=== PATIENT | female | born 1945 | race Caucasian/White ===

== ENCOUNTER 2020-12-19 19:04 | Inpatient (IN) | payer OTHER, BC ==
[2020-12-19 19:50] VITALS: BMI 30.9
[2020-12-19] MEDS ORDERED: ACETAMINOPHEN 1000 MG/100 ML VIAL (NON FORMULARY) IVPB ONE (19:50)
[2020-12-19] MEDS ORDERED: LACTATED RINGERS SOLUTION 1000 ML INFUS.BAG IV ONE (19:57)
[2020-12-19] MEDS ORDERED: METOCLOPRAMIDE HCL INJECTION 10 MG/2 ML VIAL IVPUSH ONE (19:57)
[2020-12-19] MEDS ORDERED: ACETAMINOPHEN INJECTION 100 ML IVPB ONE (20:20)
[2020-12-19] MEDS ORDERED: METOCLOPRAMIDE HCL INJECTION 10 MG/2 ML VIAL ONE (20:20)
[2020-12-19 21:21] LABS: BASO % 0.4 % (0-2.0); HEMATOCRIT 36.1 % (32.4-45.2); HEMOGLOBIN 12.5 GM/dL (10.7-15.3); LYMPH % 3.9 % (8-40); MCH 31.4 pg (25.7-33.7); MCHC 34.7 g/dl (32.0-36.0); MEAN CELL VOLUME 90.6 fl (80-96); MEAN PLT VOLUME 8.9 fl (7.5-11.1); MONO % 11.3 % (3.8-10.2); NEUT % 84.4 % (42.8-82.8); PLATELET COUNT 153 K/MM3 (134-434); RBC 3.98 M/mm3 (3.60-5.2); RDW 12.2 % (11.6-15.6); WHITE BLOOD COUNT 8.3 K/mm3 (4.0-10.0)
[2020-12-19 21:27] LABS: INR 1.56 (0.83-1.09)
[2020-12-19 21:29] LABS: ACTIVATED PTT 35.7 SECONDS (25.2-36.5)
[2020-12-19 21:57] LABS: MAGNESIUM 2.1 mg/dL (1.8-2.4)
[2020-12-19 22:04] LABS: POTASSIUM 4.6 mmol/L (3.5-5.1)
[2020-12-19 22:06] LABS: ALBUMIN 3.4 g/dl (3.4-5.0); BLOOD UREA NITROGEN 14.9 mg/dL (7-18); CALCIUM 8.9 mg/dL (8.5-10.1)
[2020-12-19 22:10] LABS: TOT PROT 6.7 g/dl (6.4-8.2)
[2020-12-20 00:51] LABS: VENOUS BASE EXCESS 0.4 mmol/L (-2-2); VENOUS O2 SATURATION 58.5 % (70-80); VENOUS PH 7.419 (7.310-7.410)
[2020-12-20 01:10] LABS: EPI CELLS >36 /uL (0-25.1); HYALINE CASTS 1 /uL (0-3.1); PH,URINE 5.5 (5.0-8.0); URINE APPEARANCE CLOUDY; URINE BACTERIA 45 /uL (0-1359); URINE BILIRUBIN NEGATIVE (NEGATIVE); URINE COLOR YELLOW; URINE GLUCOSE (UA) NEGATIVE (NEGATIVE); URINE KETONE NEGATIVE (NEGATIVE); URINE LEUK ESTERASE 2+ (NEGATIVE); URINE NITRITE NEGATIVE (NEGATIVE); URINE PROTEIN TRACE (NEGATIVE); URINE UROBILINOGEN 0.2 mg/dL (0.2-1.0); URINE WBC 83 /uL (0-25.8)
[2020-12-20] MEDS ORDERED: CEFTRIAXONE 1,000 MG in DEXTROSE 5%-WATER - 50 ML IVPB ONE (01:17)
[2020-12-20] MEDS ORDERED: CEFTRIAXONE 1 GM/50 ML BAG ONE ×3 (01:35→10:17)
[2020-12-20] MEDS ORDERED: LISINOPRIL 20 MG TABLET PO ONE (03:21)
[2020-12-20] MEDS ORDERED: LISINOPRIL 20 MG TABLET ONE ×2 (03:40→10:16)
[2020-12-20] MEDS: SODIUM CHLORIDE 1,000 ML IV SCH ×2 (03:46→12:17)
[2020-12-20 07:51] LABS: BASO % 0.2 % (0-2.0); HEMATOCRIT 32.5 % (32.4-45.2); HEMOGLOBIN 11.2 GM/dL (10.7-15.3); LYMPH % 4.6 % (8-40); MCH 31.2 pg (25.7-33.7); MCHC 34.5 g/dl (32.0-36.0); MEAN CELL VOLUME 90.4 fl (80-96); MONO % 13.7 % (3.8-10.2); NEUT % 81.5 % (42.8-82.8); PLATELET COUNT 135 K/MM3 (134-434); RBC 3.59 M/mm3 (3.60-5.2); RDW 12.2 % (11.6-15.6)
[2020-12-20 08:06] LABS: POTASSIUM 3.6 mmol/L (3.5-5.1)
[2020-12-20 08:09] LABS: ALBUMIN 2.9 g/dl (3.4-5.0); BLOOD UREA NITROGEN 15.1 mg/dL (7-18); CALCIUM 8.2 mg/dL (8.5-10.1); MAGNESIUM 1.9 mg/dL (1.8-2.4)
[2020-12-20 08:13] LABS: BILIRUBIN,TOTAL 0.6 mg/dL (0.2-1); CREATININE 0.8 mg/dL (0.55-1.3); PHOSPHOROUS 1.8 mg/dL (2.5-4.9); TOT PROT 5.8 g/dl (6.4-8.2)
[2020-12-20 08:23] LABS: CHOLESTEROL 163 mg/dL (50-200)
[2020-12-20 08:24] LABS: LDL CHOLESTEROL (ONLY SJRH) 91 mg/dL (5-100); TRIGLYCERIDES 93 mg/dL (0-150)
[2020-12-20 08:26] LABS: HDL CHOLESTEROL 47 mg/dL (40-60)
[2020-12-20] MEDS ORDERED: ACETAMINOPHEN 325 MG TABLET (FP) ONE (08:32)
[2020-12-20] MEDS: ACETAMINOPHEN 325 MG TABLET (FP) PO PRN ×3 (08:48→19:59)
[2020-12-20 09:37] LABS: URINE RBC 51.1 /uL (0-23.9); YEAST NON (NEGATIVE)
[2020-12-20] MEDS ORDERED: CEFTRIAXONE 1 GM in DEXTROSE 5%-WATER - 50 ML IVPB SCH (10:00)
[2020-12-20] MEDS ORDERED: ENOXAPARIN NA (PORCINE) 40 MG/0.4 ML DISP.SYRIN SQ SCH (10:00)
[2020-12-20] MEDS ORDERED: LISINOPRIL 20 MG TABLET PO SCH (10:00)
[2020-12-20] MEDS ORDERED: ENOXAPARIN NA (PORCINE) 40 MG/0.4 ML DISP.SYRIN SQ ONE (10:16)
[2020-12-20] MEDS: POLYETHYLENE GLYCOL 3350 119 GM BTL PO SCH (10:24)
[2020-12-20] MEDS ORDERED: NAPH,MB-DB/K PH,MBDB POWDER PACKET PO ONE (10:52)
[2020-12-20 13:43] LABS: HIV INTERPRETATION NEGATIVE (NEGATIVE)
[2020-12-20] MEDS ORDERED: HYDROCODONE ACETAMIN PO PRN (15:15)
[2020-12-20] MEDS ORDERED: AMPICILLIN - 2 GM in SODIUM CHLORIDE 100 ML IVPB SCH ×2 (15:30→17:15)
[2020-12-20] MEDS ORDERED: ACYCLOVIR 1000 MG (50MG/ML) VIAL IVPB SCH (15:30)
[2020-12-20] MEDS ORDERED: Acyclovir Sodium 800 MG in DEXTROSE 5%-WATER - 250 ML IVPB SCH (17:00)
[2020-12-20] MEDS: VANCOMYCIN 1 GM in D5W (PRE-DOCKED) 1,000 MG/250 ML IVPB SCH (18:58)
[2020-12-20] MEDS ORDERED: SODIUM CHLORIDE 500 ML IV STA (20:06)
[2020-12-20] MEDS ORDERED: PIPERACILLIN/TAZOBACTAM 4.5 GM VIAL IVPB ONE (21:30)
[2020-12-20] MEDS ORDERED: DEXTROSE 5%-WATER 100 ML IVPB ONE (21:30)
[2020-12-20] MEDS: PIPERACILLIN/TAZOB 4.5 GM 4.5 GM in DEXTROSE 5%-WATER 100 ML IVPB SCH (21:45)
[2020-12-20] MEDS: GABAPENTIN 100 MG CAPSULE PO SCH (21:46)
[2020-12-20] MEDS ORDERED: VANCOMYCIN 1 GM in D5W (PRE-DOCKED) 1,000 MG/250 ML IVPB SCH (22:00)
[2020-12-21] MEDS ORDERED: DEXTROSE 5%-WATER 100 ML IVPB ONE ×3 (02:21→17:23)
[2020-12-21] MEDS ORDERED: PIPERACILLIN/TAZOBACTAM 4.5 GM VIAL IVPB ONE ×3 (02:21→17:23)
[2020-12-21] MEDS: PIPERACILLIN/TAZOB 4.5 GM 4.5 GM in DEXTROSE 5%-WATER 100 ML IVPB SCH ×3 (02:25→17:24)
[2020-12-21] MEDS: SODIUM CHLORIDE 1,000 ML IV SCH (03:40)
[2020-12-21] MEDS: VANCOMYCIN 1 GM in D5W (PRE-DOCKED) 1,000 MG/250 ML IVPB SCH (05:12)
[2020-12-21 07:13] LABS: POTASSIUM 3.6 mmol/L (3.5-5.1)
[2020-12-21 07:16] LABS: CALCIUM 8.1 mg/dL (8.5-10.1)
[2020-12-21 07:17] LABS: ALBUMIN 2.7 g/dl (3.4-5.0); BLOOD UREA NITROGEN 15.8 mg/dL (7-18)
[2020-12-21 07:20] LABS: CREATININE 1.1 mg/dL (0.55-1.3); PHOSPHOROUS 2.4 mg/dL (2.5-4.9)
[2020-12-21 07:21] LABS: BILIRUBIN,TOTAL 0.7 mg/dL (0.2-1)
[2020-12-21 07:22] LABS: BASO % 0.2 % (0-2.0); EOS % 0.1 % (0-4.5); HEMATOCRIT 31.9 % (32.4-45.2); HEMOGLOBIN 10.9 GM/dL (10.7-15.3); LYMPH % 5.8 % (8-40); MCH 31.1 pg (25.7-33.7); MCHC 34.1 g/dl (32.0-36.0); MEAN CELL VOLUME 91.2 fl (80-96); MEAN PLT VOLUME 9.9 fl (7.5-11.1); MONO % 16.6 % (3.8-10.2); NEUT % 77.3 % (42.8-82.8); PLATELET COUNT 142 K/MM3 (134-434); RBC 3.49 M/mm3 (3.60-5.2); RDW 12.5 % (11.6-15.6); TOT PROT 5.4 g/dl (6.4-8.2); WHITE BLOOD COUNT 7.6 K/mm3 (4.0-10.0)
[2020-12-21] MEDS ORDERED: NAPH,MB-DB/K PH,MBDB POWDER PACKET PO ONE (08:15)
[2020-12-21] MEDS: PANTOPRAZOLE 40 MG TABLET PO SCH (09:52)
[2020-12-21] MEDS: LEVOTHYROXINE NA 25 MCG TABLET (FP) PO SCH (09:52)
[2020-12-21] MEDS: GABAPENTIN 100 MG CAPSULE PO SCH ×2 (09:53→21:22)
[2020-12-21] MEDS: POLYETHYLENE GLYCOL 3350 119 GM BTL PO SCH (09:53)
[2020-12-21] MEDS ORDERED: CEFTRIAXONE 2 GM in DEXTROSE 5%-WATER 2 GM/50 ML BAG IVPB SCH (10:00)
[2020-12-21] MEDS ORDERED: LOSARTAN POTASSIUM 50 MG TABLET PO SCH (10:00)
[2020-12-21] MEDS ORDERED: ACETAMINOPHEN 1000 MG/100 ML VIAL (NON FORMULARY) IVPB ONE (12:00)
[2020-12-21] MEDS: ENOXAPARIN NA (PORCINE) 40 MG/0.4 ML DISP.SYRIN SQ SCH (14:55)
[2020-12-21 16:28] LABS: INR 1.2 (0.83-1.09); PROTHROMBIN TIME (PATIENT) 14.7 SEC (9.7-13.0)
[2020-12-22] MEDS ORDERED: VANCOMYCIN 1 GRAM (PRE-DOCKED) 1,000 MG/250 ML BAG IVPB SCH (06:00)
[2020-12-22] MEDS ORDERED: PIPERACILLIN/TAZOBACTAM 4.5 GM VIAL IVPB ONE ×4 (06:13→16:56)
[2020-12-22] MEDS ORDERED: DEXTROSE 5%-WATER 100 ML IVPB ONE ×4 (06:14→16:56)
[2020-12-22] MEDS: PIPERACILLIN/TAZOB 4.5 GM 4.5 GM in DEXTROSE 5%-WATER 100 ML IVPB SCH ×3 (06:29→18:14)
[2020-12-22] MEDS: SODIUM CHLORIDE 1,000 ML IV SCH (06:36)
[2020-12-22] MEDS: ACETAMINOPHEN 325 MG TABLET (FP) PO PRN ×2 (07:01→21:03)
[2020-12-22 07:07] LABS: BASO % 0.2 % (0-2.0); EOS % 0.5 % (0-4.5); HEMATOCRIT 30.8 % (32.4-45.2); HEMOGLOBIN 10.9 GM/dL (10.7-15.3); LYMPH % 4.7 % (8-40); MCH 31.6 pg (25.7-33.7); MCHC 35.2 g/dl (32.0-36.0); MEAN CELL VOLUME 89.7 fl (80-96); MEAN PLT VOLUME 8.9 fl (7.5-11.1); MONO % 12.9 % (3.8-10.2); NEUT % 81.7 % (42.8-82.8); PLATELET COUNT 172 K/MM3 (134-434); RBC 3.44 M/mm3 (3.60-5.2); RDW 12.4 % (11.6-15.6); WHITE BLOOD COUNT 7.1 K/mm3 (4.0-10.0)
[2020-12-22 07:43] LABS: ALBUMIN 2.6 g/dl (3.4-5.0); BLOOD UREA NITROGEN 13.6 mg/dL (7-18)
[2020-12-22 07:46] LABS: BILIRUBIN,TOTAL 0.6 mg/dL (0.2-1)
[2020-12-22 07:47] LABS: TOT PROT 5.5 g/dl (6.4-8.2)
[2020-12-22] MEDS ORDERED: NAPH,MB-DB/K PH,MBDB POWDER PACKET PO ONE (07:51)
[2020-12-22 09:12] LABS: POTASSIUM 2.9 mmol/L (3.5-5.1)
[2020-12-22] MEDS: GABAPENTIN 100 MG CAPSULE PO SCH ×2 (10:16→21:01)
[2020-12-22] MEDS: KCL 10 MEQ IVPB 10 MEQ/100 ML INFUS.BAG IVPB SCH ×4 (10:17→17:13)
[2020-12-22] MEDS: LEVOTHYROXINE NA 25 MCG TABLET (FP) PO SCH (10:17)
[2020-12-22] MEDS: ENOXAPARIN NA (PORCINE) 40 MG/0.4 ML DISP.SYRIN SQ SCH (10:17)
[2020-12-22] MEDS: PANTOPRAZOLE 40 MG TABLET PO SCH (10:17)
[2020-12-22] MEDS: POLYETHYLENE GLYCOL 3350 119 GM BTL PO SCH (10:17)
[2020-12-22] MEDS: POTASSIUM CHLORIDE ORAL LIQUID 20 MEQ/15 ML PO SCH ×3 (12:04→21:02)
[2020-12-22] MEDS ORDERED: AZITHROMYCIN IVPB 500 MG in DEXTROSE 5%-WATER - 250 ML IVPB SCH (12:45)
[2020-12-22] MEDS ORDERED: TRIMETHOBENZAMIDE HCL 300 MG CAPSULE PO ONE (17:53)
[2020-12-22] MEDS: VANCOMYCIN 1 GRAM (PRE-DOCKED) 1,000 MG/250 ML BAG IVPB SCH (20:55)
[2020-12-23] MEDS ORDERED: DEXTROSE 5%-WATER 100 ML IVPB ONE ×3 (01:04→17:50)
[2020-12-23] MEDS ORDERED: PIPERACILLIN/TAZOBACTAM 4.5 GM VIAL IVPB ONE ×3 (01:04→17:50)
[2020-12-23] MEDS: PIPERACILLIN/TAZOB 4.5 GM 4.5 GM in DEXTROSE 5%-WATER 100 ML IVPB SCH ×3 (01:30→17:52)
[2020-12-23] MEDS: VANCOMYCIN 1 GRAM (PRE-DOCKED) 1,000 MG/250 ML BAG IVPB SCH ×2 (05:50→17:52)
[2020-12-23 08:23] LABS: CHLORIDE 104 mmol/L (98-107); POTASSIUM 3.1 mmol/L (3.5-5.1); SODIUM 137 mmol/L (136-145)
[2020-12-23 08:26] LABS: CALCIUM 8.3 mg/dL (8.5-10.1); GLUCOSE,RANDOM 127 mg/dL (74-106)
[2020-12-23 08:27] LABS: ALBUMIN 2.6 g/dl (3.4-5.0); ANION GAP 9 MMOL/L (8-16); BASO % 0.3 % (0-2.0); BLOOD UREA NITROGEN 12.4 mg/dL (7-18); CO2 24 mmol/L (21-32); EOS % 1.7 % (0-4.5); HEMATOCRIT 30.8 % (32.4-45.2); HEMOGLOBIN 10.5 GM/dL (10.7-15.3); LYMPH % 5.9 % (8-40); MCH 30.9 pg (25.7-33.7); MCHC 34.1 g/dl (32.0-36.0); MEAN CELL VOLUME 90.7 fl (80-96); MEAN PLT VOLUME 9.5 fl (7.5-11.1); MONO % 11.6 % (3.8-10.2); NEUT % 80.5 % (42.8-82.8); PLATELET COUNT 188 K/MM3 (134-434); RBC 3.39 M/mm3 (3.60-5.2); RDW 13.1 % (11.6-15.6)
[2020-12-23 08:29] LABS: CREATININE 1.1 mg/dL (0.55-1.3)
[2020-12-23 08:30] LABS: PHOSPHOROUS 1.6 mg/dL (2.5-4.9); SGOT/AST 26 U/L (15-37); SGPT/ALT 20 U/L (13-61)
[2020-12-23 08:31] LABS: BILIRUBIN,TOTAL 0.6 mg/dL (0.2-1); TOT PROT 5.6 g/dl (6.4-8.2)
[2020-12-23 08:32] LABS: ALK PHOS 69 U/L (45-117)
[2020-12-23] MEDS ORDERED: KCL 10 MEQ IVPB 10 MEQ/100 ML INFUS.BAG IVPB SCH (08:45)
[2020-12-23] MEDS: oxyCODONE HCL 5 MG TABLET PO PRN ×2 (09:58→22:02)
[2020-12-23] MEDS: KCL 10 MEQ IVPB 10 MEQ/100 ML INFUS.BAG IVPB SCH ×5 (09:59→15:38)
[2020-12-23] MEDS: SODIUM CHLORIDE 1,000 ML IV SCH (10:00)
[2020-12-23] MEDS: ENOXAPARIN NA (PORCINE) 40 MG/0.4 ML DISP.SYRIN SQ SCH (10:01)
[2020-12-23] MEDS: GABAPENTIN 100 MG CAPSULE PO SCH ×2 (10:01→21:58)
[2020-12-23] MEDS: PANTOPRAZOLE 40 MG TABLET PO SCH (10:01)
[2020-12-23] MEDS: LEVOTHYROXINE NA 25 MCG TABLET (FP) PO SCH (10:01)
[2020-12-23] MEDS: POLYETHYLENE GLYCOL 3350 119 GM BTL PO SCH (10:02)
[2020-12-23] MEDS: AZITHROMYCIN IVPB 500 MG/250 ML BAG IVPB SCH (10:03)
[2020-12-23] MEDS ORDERED: POTASSIUM PHOSPHATE 30 MM in SODIUM CHLORIDE 500 ML IVPB ONE ×2 (10:57→14:00)
[2020-12-23] MEDS: metoPROLOL SUCCINATE 25 MG TAB.SR.24H (FP) PO SCH (12:47)
[2020-12-24] MEDS ORDERED: MAG HYDROX/AL HYDROX/SIMETH 30 ML UNIT-DOSE CUP PO ONE (04:13)
[2020-12-24] MEDS ORDERED: PIPERACILLIN/TAZOBACTAM 4.5 GM VIAL IVPB ONE ×3 (04:20→16:57)
[2020-12-24] MEDS ORDERED: DEXTROSE 5%-WATER 100 ML IVPB ONE ×3 (04:20→16:57)
[2020-12-24] MEDS: SODIUM CHLORIDE 1,000 ML IV SCH (04:22)
[2020-12-24] MEDS: PIPERACILLIN/TAZOB 4.5 GM 4.5 GM in DEXTROSE 5%-WATER 100 ML IVPB SCH ×3 (04:22→16:59)
[2020-12-24] MEDS: VANCOMYCIN 1 GRAM (PRE-DOCKED) 1,000 MG/250 ML BAG IVPB SCH ×2 (05:31→19:04)
[2020-12-24] MEDS ORDERED: SODIUM CHLORIDE 1,000 ML IV SCH (08:19)
[2020-12-24] MEDS: oxyCODONE HCL 5 MG TABLET PO PRN ×2 (08:25→17:01)
[2020-12-24 08:31] LABS: BASO % 0.7 % (0-2.0); EOS % 3.6 % (0-4.5); HEMATOCRIT 28.1 % (32.4-45.2); HEMOGLOBIN 9.6 GM/dL (10.7-15.3); LYMPH % 6.3 % (8-40); MCHC 34.2 g/dl (32.0-36.0); MEAN CELL VOLUME 90.7 fl (80-96); MONO % 13.8 % (3.8-10.2); NEUT % 75.6 % (42.8-82.8); PLATELET COUNT 211 K/MM3 (134-434); WHITE BLOOD COUNT 5.8 K/mm3 (4.0-10.0)
[2020-12-24 08:47] LABS: POTASSIUM 3.4 mmol/L (3.5-5.1)
[2020-12-24 09:02] LABS: CALCIUM 7.9 mg/dL (8.5-10.1)
[2020-12-24 09:03] LABS: ALBUMIN 2.2 g/dl (3.4-5.0); BLOOD UREA NITROGEN 8.7 mg/dL (7-18); MAGNESIUM 1.9 mg/dL (1.8-2.4)
[2020-12-24 09:05] LABS: CREATININE 0.9 mg/dL (0.55-1.3)
[2020-12-24 09:06] LABS: PHOSPHOROUS 2.6 mg/dL (2.5-4.9)
[2020-12-24 09:07] LABS: BILIRUBIN,TOTAL 0.4 mg/dL (0.2-1); TOT PROT 5.1 g/dl (6.4-8.2)
[2020-12-24] MEDS ORDERED: POTASSIUM CHLORIDE TABS 20 MEQ TABLET.ER (FP) PO ONE (09:17)
[2020-12-24] MEDS: ENOXAPARIN NA (PORCINE) 40 MG/0.4 ML DISP.SYRIN SQ SCH (09:47)
[2020-12-24] MEDS: AZITHROMYCIN IVPB 500 MG/250 ML BAG IVPB SCH (09:47)
[2020-12-24] MEDS: PANTOPRAZOLE 40 MG TABLET PO SCH (09:48)
[2020-12-24] MEDS: GABAPENTIN 100 MG CAPSULE PO SCH ×2 (09:49→21:43)
[2020-12-24] MEDS: metoPROLOL SUCCINATE 25 MG TAB.SR.24H (FP) PO SCH (09:50)
[2020-12-24] MEDS ORDERED: POLYETHYLENE GLYCOL 3350 119 GM BTL PO SCH (10:00)
[2020-12-24] MEDS: SENNOSIDES 8.6MG TABLET (FP) PO SCH (10:05)
[2020-12-24] MEDS: POLYETHYLENE GLYCOL 3350 119 GM BTL PO SCH ×2 (10:05→21:42)
[2020-12-24 10:36] LABS: ANISOCYTOSIS 0; HELMET CELLS 0; HOWELL-JOLLY BODIES 0; MACROCYTOSIS 0; OVALOCYTE 0; PLATELET ESTIMATE NORMAL; ROULEAU 0; SICKELED CELLS 0; TARGET CELLS 0; TEAR DROP CELLS 0; TOXIC GRANULATION 0
[2020-12-24] MEDS: ACETAMINOPHEN 325 MG TABLET (FP) PO PRN (17:02)
[2020-12-25] MEDS ORDERED: DEXTROSE 5%-WATER 100 ML IVPB ONE ×3 (02:13→17:21)
[2020-12-25] MEDS ORDERED: PIPERACILLIN/TAZOBACTAM 4.5 GM VIAL IVPB ONE ×3 (02:13→17:21)
[2020-12-25] MEDS: PIPERACILLIN/TAZOB 4.5 GM 4.5 GM in DEXTROSE 5%-WATER 100 ML IVPB SCH ×3 (02:18→17:25)
[2020-12-25] MEDS: oxyCODONE HCL 5 MG TABLET PO PRN ×3 (02:18→23:21)
[2020-12-25] MEDS ORDERED: ACETAMINOPHEN 1000 MG/100 ML VIAL (NON FORMULARY) IVPB ONE (03:03)
[2020-12-25] MEDS: LEVOTHYROXINE NA 25 MCG TABLET (FP) PO SCH (06:20)
[2020-12-25 07:54] LABS: BASO % 0.7 % (0-2.0); EOS % 4.9 % (0-4.5); HEMATOCRIT 29.3 % (32.4-45.2); HEMOGLOBIN 10.3 GM/dL (10.7-15.3); LYMPH % 5.5 % (8-40); MCH 31.3 pg (25.7-33.7); MEAN CELL VOLUME 89.5 fl (80-96); MEAN PLT VOLUME 8.2 fl (7.5-11.1); MONO % 10.9 % (3.8-10.2); PLATELET COUNT 263 K/MM3 (134-434); RBC 3.28 M/mm3 (3.60-5.2); WHITE BLOOD COUNT 5.9 K/mm3 (4.0-10.0)
[2020-12-25 08:18] LABS: ALBUMIN 2.3 g/dl (3.4-5.0); BLOOD UREA NITROGEN 9.1 mg/dL (7-18); CALCIUM 8.3 mg/dL (8.5-10.1)
[2020-12-25 08:22] LABS: CREATININE 0.9 mg/dL (0.55-1.3); PHOSPHOROUS 2.5 mg/dL (2.5-4.9)
[2020-12-25] MEDS: VANCOMYCIN/WATER BAGS 1,250 MG/250 ML BAG IVPB SCH (08:22)
[2020-12-25] MEDS: SODIUM CHLORIDE 1,000 ML IV SCH (08:22)
[2020-12-25 08:23] LABS: BILIRUBIN,TOTAL 0.5 mg/dL (0.2-1); TOT PROT 5.3 g/dl (6.4-8.2)
[2020-12-25] MEDS: metoPROLOL SUCCINATE 25 MG TAB.SR.24H (FP) PO SCH ×2 (08:27→10:35)
[2020-12-25 08:35] LABS: POTASSIUM 3.6 mmol/L (3.5-5.1)
[2020-12-25] MEDS: PANTOPRAZOLE 40 MG TABLET PO SCH (10:33)
[2020-12-25] MEDS: GABAPENTIN 100 MG CAPSULE PO SCH ×2 (10:34→22:02)
[2020-12-25] MEDS: POLYETHYLENE GLYCOL 3350 119 GM BTL PO SCH ×2 (10:34→22:11)
[2020-12-25] MEDS: SENNOSIDES 8.6MG TABLET (FP) PO SCH (10:34)
[2020-12-25] MEDS: ENOXAPARIN NA (PORCINE) 40 MG/0.4 ML DISP.SYRIN SQ SCH (10:35)
[2020-12-25] MEDS: AZITHROMYCIN IVPB 500 MG/250 ML BAG IVPB SCH (10:36)
[2020-12-25 10:43] LABS: ERYTHROCYTE SEDIMENTATION RATE 96 mm/hr (0-30)
[2020-12-25] MEDS: ACETAMINOPHEN 325 MG TABLET (FP) PO PRN ×3 (11:34→23:22)
[2020-12-25] MEDS ORDERED: ACETAMINOPHEN 325 MG TABLET (FP) PO ONE (12:00)
[2020-12-25] MEDS ORDERED: oxyCODONE HCL 5 MG TABLET PO ONE (12:00)
[2020-12-25] MEDS ORDERED: PT OWN MED DRAWER 7, Y5N ONE ×2 (12:14→13:28)
[2020-12-26] MEDS ORDERED: PIPERACILLIN/TAZOBACTAM 4.5 GM VIAL IVPB ONE ×4 (02:26→18:38)
[2020-12-26] MEDS ORDERED: DEXTROSE 5%-WATER 100 ML IVPB ONE ×4 (02:26→18:39)
[2020-12-26] MEDS: PIPERACILLIN/TAZOB 4.5 GM 4.5 GM in DEXTROSE 5%-WATER 100 ML IVPB SCH ×3 (02:37→18:41)
[2020-12-26] MEDS ORDERED: PT OWN MED DRAWER 7, Y5N ONE (05:53)
[2020-12-26] MEDS: LEVOTHYROXINE NA 25 MCG TABLET (FP) PO SCH (06:03)
[2020-12-26] MEDS: ACETAMINOPHEN 325 MG TABLET (FP) PO PRN ×2 (06:03→21:05)
[2020-12-26] MEDS: VANCOMYCIN/WATER BAGS 1,250 MG/250 ML BAG IVPB SCH (06:03)
[2020-12-26] MEDS: oxyCODONE HCL 5 MG TABLET PO PRN (06:04)
[2020-12-26] MEDS: metoPROLOL SUCCINATE 25 MG TAB.SR.24H (FP) PO SCH (11:31)
[2020-12-26] MEDS: SODIUM CHLORIDE 1,000 ML IV SCH (11:33)
[2020-12-26] MEDS: ENOXAPARIN NA (PORCINE) 40 MG/0.4 ML DISP.SYRIN SQ SCH (11:34)
[2020-12-26] MEDS: GABAPENTIN 100 MG CAPSULE PO SCH ×2 (11:34→21:06)
[2020-12-26] MEDS: AZITHROMYCIN IVPB 500 MG/250 ML BAG IVPB SCH (11:35)
[2020-12-26] MEDS: POLYETHYLENE GLYCOL 3350 119 GM BTL PO SCH ×2 (11:35→21:06)
[2020-12-26] MEDS: PANTOPRAZOLE 40 MG TABLET PO SCH (11:35)
[2020-12-26] MEDS: SENNOSIDES 8.6MG TABLET (FP) PO SCH (11:35)
[2020-12-26 16:08] LABS: MYCOPLASMA PNEUMONIAE,IG G AB <100 U/mL (0-99); MYCOPLASMA PNEUMONIAE,IGM AB <770 U/mL (0-769)
[2020-12-26 16:39] LABS: BASO % 0.7 % (0-2.0); EOS % 3.1 % (0-4.5); HEMATOCRIT 32.3 % (32.4-45.2); HEMOGLOBIN 10.9 GM/dL (10.7-15.3); LYMPH % 5.2 % (8-40); MCH 30.4 pg (25.7-33.7); MCHC 33.7 g/dl (32.0-36.0); MEAN CELL VOLUME 90.2 fl (80-96); MEAN PLT VOLUME 7.8 fl (7.5-11.1); MONO % 11.4 % (3.8-10.2); NEUT % 79.6 % (42.8-82.8); PLATELET COUNT 281 K/MM3 (134-434); RBC 3.58 M/mm3 (3.60-5.2); RDW 13.2 % (11.6-15.6); WHITE BLOOD COUNT 8.6 K/mm3 (4.0-10.0)
[2020-12-26] MEDS: LIDOCAINE 5% TOPICAL PATCH TP SCH ×3 (16:42→21:05)
[2020-12-26 16:46] LABS: POTASSIUM 3.3 mmol/L (3.5-5.1)
[2020-12-26 16:48] LABS: ALBUMIN 2.7 g/dl (3.4-5.0); BLOOD UREA NITROGEN 6.1 mg/dL (7-18); CALCIUM 8.8 mg/dL (8.5-10.1)
[2020-12-26 16:51] LABS: CREATININE 1.1 mg/dL (0.55-1.3)
[2020-12-26 16:53] LABS: BILIRUBIN,TOTAL 0.4 mg/dL (0.2-1)
[2020-12-26] MEDS ORDERED: POTASSIUM CHLORIDE TABS 20 MEQ TABLET.ER (FP) PO ONE (17:08)
[2020-12-26 18:04] LABS: ANISOCYTOSIS 0; MACROCYTOSIS 0; PLATELET ESTIMATE NORMAL
[2020-12-26 18:58] LABS: ERYTHROCYTE SEDIMENTATION RATE 88 mm/hr (0-30)
[2020-12-26] MEDS: FAMOTIDINE 20 MG TABLET PO SCH (21:06)
[2020-12-26] MEDS: LIDOCAINE PATCH REMOVAL MC SCH ×2 (21:07)
[2020-12-27] MEDS: SODIUM CHLORIDE 1,000 ML IV SCH ×2 (01:27→10:55)
[2020-12-27] MEDS ORDERED: PIPERACILLIN/TAZOBACTAM 4.5 GM VIAL IVPB ONE ×3 (02:26→17:21)
[2020-12-27] MEDS ORDERED: DEXTROSE 5%-WATER 100 ML IVPB ONE ×3 (02:27→17:22)
[2020-12-27] MEDS: PIPERACILLIN/TAZOB 4.5 GM 4.5 GM in DEXTROSE 5%-WATER 100 ML IVPB SCH ×3 (02:29→18:33)
[2020-12-27] MEDS: ACETAMINOPHEN 325 MG TABLET (FP) PO PRN ×2 (02:30→21:46)
[2020-12-27] MEDS: LEVOTHYROXINE NA 25 MCG TABLET (FP) PO SCH (06:24)
[2020-12-27] MEDS: GABAPENTIN 100 MG CAPSULE PO SCH ×3 (06:24→21:45)
[2020-12-27] MEDS: VANCOMYCIN/WATER BAGS 1,250 MG/250 ML BAG IVPB SCH (06:24)
[2020-12-27] MEDS: AZITHROMYCIN IVPB 500 MG/250 ML BAG IVPB SCH (10:48)
[2020-12-27] MEDS: FAMOTIDINE 20 MG TABLET PO SCH ×2 (10:52→21:45)
[2020-12-27] MEDS: LIDOCAINE 5% TOPICAL PATCH TP SCH ×2 (10:53→10:55)
[2020-12-27] MEDS: POLYETHYLENE GLYCOL 3350 119 GM BTL PO SCH ×2 (10:56→21:48)
[2020-12-27] MEDS: ENOXAPARIN NA (PORCINE) 40 MG/0.4 ML DISP.SYRIN SQ SCH (10:56)
[2020-12-27 15:53] LABS: BASO % 1.2 % (0-2.0); EOS % 2.4 % (0-4.5); HEMATOCRIT 31.3 % (32.4-45.2); HEMOGLOBIN 10.7 GM/dL (10.7-15.3); LYMPH % 6.6 % (8-40); MCH 30.9 pg (25.7-33.7); MCHC 34.3 g/dl (32.0-36.0); MEAN PLT VOLUME 7.5 fl (7.5-11.1); MONO % 12.3 % (3.8-10.2); NEUT % 77.5 % (42.8-82.8); PLATELET COUNT 243 K/MM3 (134-434); RBC 3.48 M/mm3 (3.60-5.2); RDW 13.2 % (11.6-15.6); WHITE BLOOD COUNT 6.3 K/mm3 (4.0-10.0)
[2020-12-27 16:19] LABS: POTASSIUM 3.5 mmol/L (3.5-5.1)
[2020-12-27 16:22] LABS: ALBUMIN 2.5 g/dl (3.4-5.0); BLOOD UREA NITROGEN 6.2 mg/dL (7-18); CALCIUM 8.4 mg/dL (8.5-10.1)
[2020-12-27 16:23] LABS: MAGNESIUM 1.9 mg/dL (1.8-2.4)
[2020-12-27 16:26] LABS: BILIRUBIN,TOTAL 0.3 mg/dL (0.2-1); CREATININE 1.1 mg/dL (0.55-1.3); PHOSPHOROUS 2.2 mg/dL (2.5-4.9); TOT PROT 5.5 g/dl (6.4-8.2)
[2020-12-27 17:50] LABS: ERYTHROCYTE SEDIMENTATION RATE 70 mm/hr (0-30)
[2020-12-27 19:34] LABS: ANISOCYTOSIS 1+; MACROCYTOSIS 0; PLATELET ESTIMATE NORMAL
[2020-12-27] MEDS: LIDOCAINE PATCH REMOVAL MC SCH ×2 (21:47)
[2020-12-27] MEDS ORDERED: amLODIPine BESYLATE 5 MG TABLET (FP) PO PRN (22:22)
[2020-12-28] MEDS ORDERED: PIPERACILLIN/TAZOBACTAM 4.5 GM VIAL IVPB ONE ×2 (01:59→09:51)
[2020-12-28] MEDS ORDERED: DEXTROSE 5%-WATER 100 ML IVPB ONE ×2 (01:59→09:51)
[2020-12-28] MEDS: PIPERACILLIN/TAZOB 4.5 GM 4.5 GM in DEXTROSE 5%-WATER 100 ML IVPB SCH ×2 (02:27→10:51)
[2020-12-28] MEDS ORDERED: METOPROLOL TARTRATE 5 MG/5 ML VIAL IVPUSH PRN (02:38)
[2020-12-28] MEDS ORDERED: amLODIPine BESYLATE 5 MG TABLET (FP) PO PRN (03:04)
[2020-12-28] MEDS: LEVOTHYROXINE NA 25 MCG TABLET (FP) PO SCH (06:30)
[2020-12-28] MEDS: GABAPENTIN 100 MG CAPSULE PO SCH (06:30)
[2020-12-28] MEDS: ACETAMINOPHEN 325 MG TABLET (FP) PO PRN ×2 (06:31→10:50)
[2020-12-28 08:00] LABS: BASO % 0.8 % (0-2.0); EOS % 1.9 % (0-4.5); HEMATOCRIT 33.3 % (32.4-45.2); HEMOGLOBIN 11.4 GM/dL (10.7-15.3); LYMPH % 6.4 % (8-40); MCH 30.8 pg (25.7-33.7); MCHC 34.3 g/dl (32.0-36.0); MEAN CELL VOLUME 89.6 fl (80-96); MEAN PLT VOLUME 7.5 fl (7.5-11.1); MONO % 10.8 % (3.8-10.2); NEUT % 80.1 % (42.8-82.8); PLATELET COUNT 252 K/MM3 (134-434); RBC 3.71 M/mm3 (3.60-5.2); RDW 13.2 % (11.6-15.6); WHITE BLOOD COUNT 6.8 K/mm3 (4.0-10.0)
[2020-12-28 08:40] LABS: POTASSIUM 3.7 mmol/L (3.5-5.1)
[2020-12-28 08:45] LABS: CALCIUM 8.6 mg/dL (8.5-10.1)
[2020-12-28 08:46] LABS: ALBUMIN 2.8 g/dl (3.4-5.0); BLOOD UREA NITROGEN 6.1 mg/dL (7-18); MAGNESIUM 1.9 mg/dL (1.8-2.4)
[2020-12-28 08:49] LABS: PHOSPHOROUS 2.5 mg/dL (2.5-4.9)
[2020-12-28 08:50] LABS: BILIRUBIN,TOTAL 0.4 mg/dL (0.2-1)
[2020-12-28 08:51] LABS: TOT PROT 6.2 g/dl (6.4-8.2)
[2020-12-28] MEDS: ENOXAPARIN NA (PORCINE) 40 MG/0.4 ML DISP.SYRIN SQ SCH (10:50)
[2020-12-28] MEDS: LIDOCAINE 5% TOPICAL PATCH TP SCH ×2 (10:50)
[2020-12-28] MEDS: POLYETHYLENE GLYCOL 3350 119 GM BTL PO SCH (10:51)
[2020-12-28] MEDS: hydrALAZINE HCL 25 MG TABLET (FP) PO SCH ×2 (10:51→10:57)
[2020-12-28] MEDS: FAMOTIDINE 20 MG TABLET PO SCH (10:51)
[2020-12-28] MEDS: AZITHROMYCIN IVPB 500 MG/250 ML BAG IVPB SCH (10:51)
[2020-12-28 13:20] LABS: PLATELET ESTIMATE NORMAL
[2020-12-28] MEDS ORDERED: hydrALAZINE HCL 25 MG TABLET (FP) PO SCH (14:00)
[2020-12-28 14:08] VITALS: BP 146/98; PULSE 92; TEMP 98.4
== END 2020-12-28 15:00 | disposition home or self-care (01) | DRG 871 ==
LOC: JER 19:04 → JERBED 22:40 → J6S 12-20 11:22 → J4W 12-21 21:31
PROVIDERS: ADMIT Internal Medicine; ATTEND Internal Medicine
DX: A41.89 Other specified sepsis (principal); G93.41 Metabolic encephalopathy; J18.9 Pneumonia, unspecified organism; I31.3 Pericardial effusion (noninflammatory); I47.1 Supraventricular tachycardia; G45.9 Transient cerebral ischemic attack, unspecified; N39.0 Urinary tract infection, site not specified; J90 Pleural effusion, not elsewhere classified; R50.9 Fever, unspecified; R41.82 Altered mental status, unspecified; Z85.3 Personal history of malignant neoplasm of breast; G43.909 Migraine, unspecified, not intractable, without status migrainosus; E66.9 Obesity, unspecified; Z68.30 Body mass index [BMI] 30.0-30.9, adult; K59.09 Other constipation; I10 Essential (primary) hypertension; R94.31 Abnormal electrocardiogram [ECG] [EKG]; M47.812 Spondylosis without myelopathy or radiculopathy, cervical region; K76.89 Other specified diseases of liver; K21.9 Gastro-esophageal reflux disease without esophagitis; E03.9 Hypothyroidism, unspecified
CPT/HCPCS: 36415; 70450-TC; 71045-TC-FY; 71046-TC-FY; 71260-TC; 72100-TC-FY; 74177-TC; 74230-TC-FY; 80053; 80061; 80074; 81003; 82728; 82803; 82962; 83036; 83605; 83615; 83721; 83735; 84100; 84443; 84484; 85025; 85045; 85379; 85610; 85651; 85730; 86038; 86140; 86225; 86618; 86738; 86780; 87040; 87086; 87389; 87804; 87899; 92611-GN; 93005; 93010; 93306-TC; 97116-GP; 97161-GP; 99285-25; C9803; G0480; J0131; U0003